=== PATIENT | female | born 1975 | race American Indian/Alaskan Native ===

== ENCOUNTER 2021-12-13 13:13 | Emergency (ER) | payer MEDICAID ==
[2021-12-13 13:31] VITALS: BP 118/69
--- NOTE | 2021-12-13 14:04 | XRay Report ---
CHEST 2 VIEWS INDICATION / CLINICAL INFORMATION: Chest Pain. COMPARISON: 02/12/2021 FINDINGS: SUPPORT DEVICES: None. HEART / MEDIASTINUM: No significant abnormality. LUNGS / PLEURA: No significant pulmonary or pleural abnormality. No pneumothorax. ADDITIONAL FINDINGS: No significant additional findings. IMPRESSION: 1. No acute findings. Signer Name: Yash Elizalde Jr, MD Signed: 12/13/2021 1:59 PM Workstation Name: [id number]
[2021-12-13 14:26] LABS: Basophils # (Auto) 0.1 K/mm3 (0.0-0.1); Basophils % (Auto) 1.2 % (0.0-1.8); Eosinophils % (Auto) 0.7 % (0.0-4.3); Hematocrit 27.7 % (30.3-42.9); Hemoglobin 8.6 gm/dl (10.1-14.3); Lymphocytes # (Auto) 2.8 K/mm3 (1.2-5.4); Lymphocytes % (Auto) 44.7 % (13.4-35.0); Mean Corpuscular HGB Conc 31 % (30-34); Monocytes # (Auto) 0.5 K/mm3 (0.0-0.8); Monocytes % (Auto) 8.3 % (0.0-7.3); Platelet Count 377 K/mm3 (140-440); Red Blood Count 4.07 M/mm3 (3.65-5.03); Red Cell Distribution Width 19.4 % (13.2-15.2)
[2021-12-13 14:27] LABS: Mean Corpuscular Volume 68 fl (79-97)
[2021-12-13 14:34] LABS: INR 0.91 (0.87-1.13); Partial Thromboplastin Time 25.7 Sec. (24.2-36.6)
[2021-12-13 14:43] LABS: Alanine Aminotransferase 11 units/L (7-56); Albumin 4.7 g/dL (3.9-5); Blood Urea Nitrogen 7 mg/dL (7-17); Hemolysis Index 1
[2021-12-13 14:56] LABS: BUN/Creatinine Ratio 10
[2021-12-14] MEDS ORDERED: IBUPROFEN 800 MG TAB PO ONE (04:33)
--- NOTE | 2021-12-14 04:56 | Emergency Department Report ---
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 Patient states 4/10 pain exacerbated by movement and completing job duties of loading and unloading. Patient denies shortness of breath there is no dizziness no lightheadedness no fever chills no nausea or vomiting. Patient denies history of coronary artery disease. There is no hypertension no diabetes. Pain is reproducible to palpation and movement. Patient has not taken [id number] NSAIDs for pain. MD Complaint: chest pain Severity scale (0 -10): 5 - Related Data Allergies Allergy/AdvReac Type Severity Reaction Status Date / Time morphine Allergy Anaphylaxis Verified 12/13/21 13:33 Heart Score - HEART Score History: Slightly suspicious EKG: Normal Age: 45-65 Risk factors: No known risk factors Troponin: < normal limit HEART Score: 1 - EKG Read Time Time EKG Completed: 13:36 EKG Read Time: 13:39 ED Review of Systems ROS: Stated complaint: CHEST PAIN Other details as noted in HPI Constitutional: denies: chills, fever Eyes: denies: eye pain, eye discharge, vision change ENT: denies: ear pain, throat pain Respiratory: denies: cough, shortness of breath, wheezing Cardiovascular: chest pain Endocrine: no symptoms reported Gastrointestinal: denies: abdominal pain, nausea, diarrhea Genitourinary: denies: urgency, dysuria, discharge Musculoskeletal: denies: back pain, joint swelling, arthralgia Skin: denies: rash, lesions Neurological: denies: headache, weakness, paresthesias Psychiatric: denies: anxiety, depression Hematological/Lymphatic: denies: easy bleeding, easy bruising ED Physical Exam - General Limitations: No Limitations General appearance: alert, in no apparent distress - Head Head exam: Present: atraumatic, normocephalic - Eye Eye exam: Present: EOMI Pupils: Present: normal accommodation - ENT ENT exam: Present: normal exam - Neck Neck exam: Present: normal inspection, full ROM. Absent: tenderness, lymphadenopathy - Respiratory Respiratory exam: Present: normal lung sounds bilaterally, chest wall tenderness (Left lateral anterior chest wall pain to deep palpation no crepitus no ecchymosis no swelling no step-off). Absent: respiratory distress, wheezes, stridor - Cardiovascular Cardiovascular Exam: Present: regular rate, normal rhythm, normal heart sounds. Absent: systolic murmur, diastolic murmur, rubs, gallop - GI/Abdominal GI/Abdominal exam: Present: soft, normal bowel sounds. Absent: distended, tenderness - Rectal Rectal exam: Present: deferred - Extremities Exam Extremities exam: Present: normal inspection, full ROM, normal capillary refill. Absent: pedal edema - Back Exam Back exam: Present: normal inspection, full ROM. Absent: CVA tenderness (R), CVA tenderness (L) - Neurological Exam Neurological exam: Present: alert, oriented X3, CN II-XII intact, normal gait - Expanded Neurological Exam Expanded Patient oriented to: Present: person, place, time Speech: Present: fluid speech Best Eye Response (Wilson): (4) open spontaneously Best Motor Response (Harsha): (6) obeys commands Best Verbal Response (Harsha): (5) oriented Wilson Total: 15 - Psychiatric Psychiatric exam: Present: normal affect, normal mood - Skin Skin exam: Present: warm, dry, intact, normal color. Absent: rash ED Course Vital Signs 12/13/21 12/14/21 13:30 04:45 Temperature 97.5 F L Pulse Rate 77 Respiratory 18 16 Rate Blood Pressure 118/69 [Right] O2 Sat by Pulse 99 Oximetry SHAWN score - Shawn Score Age > 65: (0) No Aspirin use within the Past 7 Days: (0) No 3 or more CAD Risk Factors: (0) No 2 or more Angina events in past 24 hrs: (0) No Known CAD with more than 50% Stenosis: (0) No Elevated Cardiac Markers: (0) No ST Deviation Greater than 0.5mm: (0) No SHAWN Score: 0 ED Medical Decision Making - Lab Data Result diagrams: 12/13/21 13:34 12/13/21 13:34 Labs 12/13/21 12/13/21 12/13/21 13:34 13:34 13:34 WBC 6.3 RBC 4.07 Hgb 8.6 L Hct 27.7 L MCV 68 L MCH 21 L MCHC 31 RDW 19.4 H Plt Count 377 Lymph % (Auto) 44.7 H [place] % (Auto) 8.3 H Eos % (Auto) 0.7 Baso % (Auto) 1.2 Lymph # (Auto) 2.8 [place] # (Auto) 0.5 Eos # (Auto) 0.0 Baso # (Auto) 0.1 Seg Neutrophils % 45.1 Seg Neutrophils # 2.8 PT 13.2 INR 0.91 APTT 25.7 Sodium 141 Potassium 4.1 Chloride 104.7 Carbon Dioxide 25 Anion Gap 15 BUN 7 Creatinine 0.7 Estimated GFR > 60 BUN/Creatinine Ratio 10 Glucose 89 Calcium 10.0 Total Bilirubin 0.40 AST 17 ALT 11 Alkaline Phosphatase 62 Troponin T < 0.010 Total Protein 8.4 H Albumin 4.7 Albumin/Globulin Ratio 1.3 - Radiology Data Radiology results: report reviewed, image reviewed CHEST 2 VIEWS INDICATION / CLINICAL INFORMATION: Chest Pain. COMPARISON: 02/12/2021 FINDINGS: SUPPORT DEVICES: None. HEART / MEDIASTINUM: No significant abnormality. LUNGS / PLEURA: No significant pulmonary or pleural abnormality. No pneumothorax. ADDITIONAL FINDINGS: No significant additional findings. IMPRESSION: 1. No acute findings. Signer Name: Yash Boucher Jr, MD Signed: 12/13/2021 1:59 PM Workstation Name: [id number] Transcribed By: TTR Dictated By: YASH BOUCHER JR, MD Electronically Authenticated By: YASH BOUCHER JR, MD Signed Date/Time: 12/13/211358 DD/ 58 TD/TT: - Medical Decision Making Heart score 0 SHAWN score 0 chest x-ray normal no infiltrates no opacities. EKG normal sinus rhythm no ST elevated KS interpreted by ED attending. This pain is reproducible to palpation there is no crepitus no step-off no ecchymosis. Lung sounds are clear throughout respirations are even and nonlabored. This is chest wall pain. Plan NSAIDs as needed pain moist heat to the area. Follow-up with primary care doctor in 2 to 3 days. Patient verbalized agreement and understanding of discharge plan. Patient DC'd home in stable condition at this time. Critical care attestation.: If time is entered above; I have spent that time in minutes in the direct care of this critically ill patient, excluding procedure time. ED Disposition Clinical Impression: Chest wall muscle strain Qualifiers: Encounter type: initial encounter Qualified Code(s): S29.011A - Strain of muscle and tendon of front wall of thorax, initial encounter Disposition: HOME / SELF CARE / HOMELESS Is pt being admited?: No Does the pt Need Aspirin: No Condition: Stable Instructions: Muscle Strain, [id number] Additional Instructions: Take medications as prescribed, use moist heat therapy to the area, follow-up with your doctor in 2 to 3 days. Return to emergency department should symptoms worsen. Referrals: [facility] [Other] - 3-5 Days Forms: Work/School Release Form(ED) Time of Disposition: 05:02
--- NOTE | 2021-12-14 09:00 | Electrocardiograph Report ---
[facility] Test Date: 2021-12-13 Test Time: 13:36:54 Pat Name: ROME LEON Department: Room: Gender: F Furniture Mover Driver: JOB : 1975 Requested By: JAKY STILL Order Number: [id number] Reading MD: Kan Mijares Measurements Intervals [place] Rate: 81 P: 75 PA: 159 QRS: 35 QRSD: 86 T: 73 QT: 306 QTc: 355 Interpretive Statements Sinus rhythm Probable left atrial enlargement Consider anteroseptal infarct No previous ECG available for comparison Electronically Signed On 12-14-2021 8:59:59 EDT by Kan Mijares
== END 2021-12-14 05:24 | disposition home or self-care (01) ==
LOC: ED 13:13
DX: S29.011A Strain of muscle and tendon of front wall of thorax, initial encounter (principal); X58.XXXA Exposure to other specified factors, initial encounter; Y93.89 Activity, other specified; Y92.89 Other specified places as the place of occurrence of the external cause; Y99.8 Other external cause status; Z88.6 Allergy status to analgesic agent
CPT/HCPCS: 36415; 71046; 80053; 84484; 85025; 85610; 85730; 93005; 99283; 99284